=== PATIENT | female | born 1980 | race Caucasian/White ===

== ENCOUNTER 2017-12-21 20:29 | Emergency (ER) | payer OTHER ==
[2017-12-21 20:42] VITALS: BP 106/66
--- NOTE | 2017-12-21 21:30 | UC ---
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 she is able to bear weight. small abrasion on medial ankle. did not take anything for it b/c APAP and nsaids dont work for her (she has chronic back pain and has an ortho in [place] that she follows closely with in [place]. sensation intact. no weakness or giving out. - History of Current Complaint Chief Complaint: UCLowerExtremity Stated Complaint: RIGHT FOOT INJURY Time Seen by Provider: 12/21/17 21:19 Hx Last Menstrual Period: 11/16/15 Pain Intensity: 7 - Allergies/Home Medications Allergies/Adverse Reactions: Allergies Allergy/AdvReac Type Severity Reaction Status Date / Time MS Latex [Latex] Allergy Rash Verified 11/22/17 10:49 MS Sulfa Antibiotics Allergy Swelling Verified 11/22/17 10:49 [Sulfa Antibiotics] Home Medications: Home Medications Levothyroxine TAB* [Synthroid 88 MCG TAB*] 88 mcg PO 0800 12/21/17 [History Confirmed 12/21/17] PMH/Surg Hx/FS Hx/Imm Hx Previously Healthy: Yes Endocrine History: Thyroid Disease - Surgical History Surgical History: Yes Surgery Procedure, Year, and Place: T&A August 2014. Tubal. SUBCUTANEOUS MASS REMOVED - Lt SIDE OF NECK. 08/2017 HYSTERECTOMY. LAP EXPLORATORY. DOUBLE HERNIA REPAIR - Family History Known Family History: Positive: Hypertension - Social History Alcohol Use: None Substance Use Type: None Smoking Status (MU): Never Smoked Tobacco Review of Systems Constitutional: Negative Skin: Negative Eyes: Negative ENT: Negative Respiratory: Negative Cardiovascular: Negative Gastrointestinal: Negative Genitourinary: Negative Motor: Negative Neurovascular: Negative Musculoskeletal: Arthralgia, Edema Neurological: Negative Psychological: Negative Is Patient Immunocompromised?: No All Other Systems Reviewed And Are Negative: Yes Physical Exam Triage Information Reviewed: Yes Appearance: Well-Appearing, No Pain Distress, Well-Nourished Vital Signs: Initial Vital Signs Temp 98.1 F 12/21/17 20:35 Pulse 82 12/21/17 20:35 Resp 16 12/21/17 20:35 BP 106/66 12/21/17 20:35 Pulse Ox 100 12/21/17 20:35 Vital Signs Reviewed: Yes Eye Exam: Normal Respiratory: Positive: Lungs clear Cardiovascular: Positive: RRR Musculoskeletal: Positive: No Edema, Other: - rt ankle freddie-medial w/ mild swelling w/ minimal abrasion but no real skin break. FROM w/ mild tendernss. strength intact. FROM all toes. CR brisk. sensation intact. + 2 DP/PT. mildlimp Neurological Exam: Normal Psychological Exam: Normal Lower Extremity Course/Dx - Course Course Of Treatment: xray right ankle reviewed by myself - no frx is appreciated. Pt aware that official read will be in AM and she should hear if there is any discrepency. -declines rx for NSAID. adv to take for anti- inflammatory and pain control. -ice w/ barrier on/off as much as possible. - hard sole shoe. declines bree shoe or wrap here - Differential Dx/Diagnosis Differential Diagnosis/HQI/PQRI: Contusion, Fracture (Closed), Sprain, Strain Provider Diagnoses: right ankle contusion Discharge - Sign-Out/Discharge Documenting (check all that apply): Patient Departure - Discharge Plan Condition: Stable Disposition: HOME Patient Education Materials: Foot Contusion (ED) Referrals: Royer Ames MD [Primary Care Provider] - Additional Instructions: Follow up with either your PCP or ortho in 1 week. We discussed that I did not appreciate a fracture on the xray and they will be officially read by the radiologist in the morning. We also discussed that it can take up to 2 weeks for a fracture to be evident on xray. If there is significant pain at that time , repeat xray should be considered. -Ice with towel barrier 20 mins on/20 mins off. NSAIDs for pain and inflammation -wear a hard soled, supportive shoe. You have declined a medical shoe from [facility]. - Billing Disposition and Condition Condition: STABLE Disposition: Home
--- NOTE | 2017-12-21 21:34 | RAD ---
INDICATION: Right ankle injury. COMPARISON: Comparison is made with a prior study from September 18, 2008. TECHNIQUE: 3 views of the right ankle were obtained. FINDINGS: There is mild diffuse soft tissue swelling. There is hypertrophic change present along the medial metaphysis and medial malleolus. No discrete fracture is seen. Joint spaces appear maintained. IMPRESSION: SOFT TISSUE SWELLING, NO FRACTURE IS SEEN.
== END 2017-12-21 21:38 | disposition home or self-care (01) ==
LOC: UCCORT 20:29
DX: S90.01XA Contusion of right ankle, initial encounter (principal); W20.8XXA Other cause of strike by thrown, projected or falling object, initial encounter; Y93.9 Activity, unspecified; Y92.9 Unspecified place or not applicable; Z88.1 Allergy status to other antibiotic agents; E07.9 Disorder of thyroid, unspecified
CPT/HCPCS: 99211; G0463